=== PATIENT | female | born 1965 | race Caucasian/White ===

== ENCOUNTER 2018-05-15 00:18 | Outpatient (CLI) | payer OTHER ==
--- NOTE | 2018-05-17 07:39 | EKG ---
Test Reason : Blood Pressure : / mmHG Vent. Rate : 076 BPM Atrial Rate : 076 BPM P-R Int : 138 ms QRS Dur : 068 ms QT Int : 380 ms P-R-T Axes : 071 047 038 degrees QTc Int : 427 ms Normal sinus rhythm Low voltage QRS Borderline ECG No previous ECGs available Confirmed by JACKIE HERNANDEZ ([id number]) on 05/17/2018 7:38:54 AM Referred By: NONI Confirmed By:JACKIE HERNANDEZ
== END 2018-05-15 00:19 | disposition home or self-care (01) ==
LOC: LABBT 00:18
PROVIDERS: ATTEND Surgery
DX: Z01.818 Encounter for other preprocedural examination (principal); K64.9 Unspecified hemorrhoids
CPT/HCPCS: 93005; 93010

== ENCOUNTER 2018-05-18 06:09 | Day surgery (SDC) | payer OTHER ==
[2018-05-15 17:15] VITALS: BMI 38.1
[2018-05-18] MEDS ORDERED: cefOXitin Sodium/Dextrose,Iso 2 GM in Premix Bag 1 BAG IVPB SCH (06:30)
[2018-05-18] MEDS ORDERED: Fentanyl 100 MCG/2 ML VIAL ONE (06:35)
[2018-05-18] MEDS ORDERED: Midazolam HCl 2 mg/2 ml Vial ONE (06:35)
[2018-05-18] MEDS ORDERED: Famotidine/PF 20 mg/2ml Vial ONE (06:47)
[2018-05-18 06:52] LABS: #Basophils 0.1 thou/uL (0.0-0.2); #Eosinphils 0.1 thou/uL (0.0-0.7); #Lymphocytes 2.2 thou/uL (1.20-3.40); #Monocytes 0.4 thou/uL (0.11-0.59); #Neutrophils 1.8 thou/uL (1.40-6.50); %Basophils 2.4 % (0.0-1.0); %Eosinophils 2.9 % (0.0-10.0); %Lymphocytes 48.3 % (21.0-51.0); %Monocytes 7.9 % (0.0-10.0); %Neutrophils 38.6 % (42.0-75.0); Hemoglobin 12.7 g/dL (12.0-16.0); Mean Corpuscular HGB CONC 32.3 g/dL (32.0-36.0); Mean Corpuscular Hemoglobin 29.3 pg (27.0-31.0); Mean Corpuscular Volume 90.8 fL (78.0-98.0); Mean Platelet Volume 7.5 fL (7.4-10.4); Platelet Count 242 thou/uL (130-400); Red Blood Cell (RBC) Count 4.34 mill/uL (4.20-5.40); White Blood Cell (WBC) Count 4.6 thou/uL (4.8-10.8)
[2018-05-18] MEDS ORDERED: Bacitracin Zinc Ointment 30 gm TUBE ONE (07:02)
[2018-05-18] MEDS ORDERED: Bupivacaine HCl 0.5%/Epinephrine 1:200,000/PF 30 ml Vial ONE (07:02)
[2018-05-18 07:12] LABS: ALT (SGPT) 18 U/L (8-55); AST (SGOT) 16 U/L (5-34); Albumin 4.2 g/dL (3.5-5.0); Alkaline Phosphatase 78 U/L (40-150); Anion Gap 14 mmol/L (10-20); BUN (Urea Nitrogen) 10 mg/dL (9.8-20.1); Bilirubin, Direct 0.4 mg/dL (0.1-0.3); Bilirubin, Total 1.2 mg/dL (0.2-1.2); Calc. Creatinine Clearance 72 mL/min (70-130); Calcium 9.8 mg/dL (7.8-10.44); Carbon Dioxide 24 mmol/L (22-29); Chloride 107 mmol/L (98-107); Estimated GFR-MDRD 74; Globulin 2.3 g/dL (2.4-3.5); Glucose 81 mg/dL (70-105); Potassium 3.7 mmol/L (3.5-5.1); Protein, Total 6.5 g/dL (6.0-8.3); Sodium 141 mmol/L (136-145)
[2018-05-18] MEDS ORDERED: Promethazine HCl 25 MG/ML VIAL SLOW IVP PRN (07:20)
--- NOTE | 2018-05-18 09:17 | OP ---
DATE OF PROCEDURE: 05/18/2018 PREOPERATIVE DIAGNOSIS: Bleeding hemorrhoids. PROCEDURE PERFORMED: PPH stapled hemorrhoidectomy. INDICATIONS: A 52-year-old female, who has been having prolapse of hemorrhoids and bright red blood per rectum. Colonoscopy unremarkable except for the hemorrhoids. FINDINGS: Grade 3 hemorrhoids. DESCRIPTION OF PROCEDURE: After informed consent was obtained, the patient was taken to the operating room and given general endotracheal anesthesia. She was placed in the prone yumiko-knife position. Her buttock cheeks were spread apart with tape. Local anesthesia was infiltrated subcutaneously and deep with 0.5% Marcaine as a four-quadrant anal block. The anal retractor was inserted maximally into the anal canal and sutured in place with 0 silk suture. Then, the pursestring guide was inserted and a pursestring of 2-0 Prolene was placed circumferentially in the rectal mucosa. The stapler was opened maximally. The anvil inserted proximal to the pursestring and then the strings were brought through the channels on the stapler, tied as a knot, held closed as the stapler was closed. The stapler was then fired and held for 30 seconds, released for 30 seconds and removed. The specimen was inspected. There was no muscle fiber sent to pathology for further analysis. Hemostasis achieved. There was one area of bleeding that was controlled with a 3-0 chromic suture. The staple line was irrigated. Hemostasis assured. Gelfoam impregnated with bacitracin was inserted. Sterile bandage applied. The patient tolerated the procedure well, transferred to Recovery in good condition. Sponge and needle count verified correct x2. Job ID: [id number]
[2018-05-18] MEDS ORDERED: PHENYLEPHRINE-NS 100 MCG/ML 10 ML SYRINGE ONE (15:50)
[2018-05-18] MEDS ORDERED: Metoclopramide HCl 10 MG/2 ML VIAL ONE (15:50)
[2018-05-18] MEDS ORDERED: Dexamethasone 20 MG/5 ML VIAL ONE (15:50)
[2018-05-18] MEDS ORDERED: Lidocaine 1% PF 5 ML VIAL ONE (15:50)
[2018-05-18] MEDS ORDERED: Glycopyrrolate 0.2 MG/ML 5 ML SYRINGE ONE (15:50)
[2018-05-18] MEDS ORDERED: PROPOFOL 200 MG/20 ML VIAL ONE (15:50)
[2018-05-18] MEDS ORDERED: Ketorolac Tromethamine 30 MG/ML VIAL ONE (15:50)
[2018-05-18] MEDS ORDERED: Ondansetron PF 4 MG/2 ML Vial ONE (15:50)
[2018-05-18] MEDS ORDERED: Rocuronium Bromide 10 MG/ML (10ML VIAL) ONE (15:50)
== END 2018-05-18 11:49 | disposition home or self-care (01) ==
LOC: SDC 06:09
PROVIDERS: ATTEND Surgery
PROC: 06BY4ZC Excision of Hemorrhoidal Plexus, Percutaneous Endoscopic Approach (ICD-10-PCS; principal; 2018-05-18)
DX: K64.2 Third degree hemorrhoids (principal); Z88.0 Allergy status to penicillin; Z88.6 Allergy status to analgesic agent
CPT/HCPCS: 36415; 80053; 80076; 85025; 88304; J0670; J2250; J3010; S0028

== ENCOUNTER 2019-02-04 14:13 | Outpatient (CLI) | payer OTHER ==
[~2019-02-04 14:13] MED LIST: Iopamidol 370 76% 100 ML VIAL ONE
--- NOTE | 2019-02-04 16:42 | CT ---
CT ABDOMEN AND PELVIS WITH IV CONTRAST: Date: 02-04-19 Provided Clinical History: Left sided abdominal pain. FINDINGS: The visualized lung bases are free of significant opacity. The liver, spleen, pancreas, kidneys and adrenal glands demonstrate an unremarkable CT appearance. There is no bowel dilatation, inflammatory fat stranding, free fluid or lymph node enlargement appare nt. The appendix appears normal. The osseous structures demonstrate no concerning lytic or blastic lesions. IMPRESSION: No evidence for acute process. POS: OFF
== END 2019-02-04 14:14 | disposition home or self-care (01) ==
LOC: BICCT 14:13
PROVIDERS: ATTEND Obstetrics & Gynecology
DX: R10.9 Unspecified abdominal pain (principal)
CPT/HCPCS: 74177; Q9967